=== PATIENT | male | born 1995 | race Caucasian/White ===

== ENCOUNTER 2024-06-25 18:44 | Emergency (ER) | payer BC ==
[~2024-06-25] VITALS: Ht 172.7 cm; Wt 120.0 kg
[2024-06-25 18:50] VITALS: O2SAT 99
[2024-06-25 19:21] VITALS: TEMP 36.7; O2SAT 99
[2024-06-25 20:16] LABS: CLARITY URINE CLEAR (CLEAR); COLOR URINE YELLOW (YELLOW); GLUCOSE URINE NEGATIVE (NEGATIVE); KETONES URINE NEGATIVE (NEGATIVE); LEUKOCYTE ESTERASE URINE NEGATIVE (NEGATIVE); NITRITE URINE NEGATIVE (NEGATIVE); OCCULT BLOOD URINE NEGATIVE (NEGATIVE); PROTEIN URINE NEGATIVE (NEGATIVE); SPECIFIC GRAVITY URINE 1.011 (1.005-1.030); UROBILINOGEN URINE 0.2 E.U./dL (0.2-1.0)
[2024-06-25 20:59] VITALS: BP 144/80; PULSE 88; RESP 14
[2024-06-25] MEDS: KETOROLAC 30MG/ML VIAL IM ONE (20:59)
[2024-06-25] MEDS ORDERED: IBUP-2029 MT (21:36)
== END 2024-06-25 21:50 | disposition home or self-care (01) ==
LOC: ER 18:44
DX: R10.9 Unspecified abdominal pain (principal); J45.909 Unspecified asthma, uncomplicated; Z55.6 Problems related to health literacy; Z79.899 Other long term (current) drug therapy
CPT/HCPCS: 81003; 74176; 96372; 99285; J1885; Z7610